=== PATIENT | female | born 1965 | race Caucasian/White ===

== ENCOUNTER → 2016-11-28 | Outpatient (CLI) | payer MEDICARE, OTHER ==
--- NOTE | 2016-11-29 10:30 | Diagnostic Imaging Report ---
Indication: COUGH Technique: XRAY CHEST 2V Comparison:None Findings: The heart is normal in size. There are clips in the left lower chest and upper abdomen from previous surgery. There is slight blunting of the left gastric angle. Lungs are free of acute infiltrates. Impression: Evidence previous surgery Slight blunting left lateral angle. This may be chronic as this is in the area of surgery. A small pleural effusion cannot be excluded however.
== END | disposition home or self-care (01) ==
LOC: RAD 17:03
DX: R05 Cough (principal); J90 Pleural effusion, not elsewhere classified
CPT/HCPCS: 71020

== ENCOUNTER 2017-07-03 15:13 | Outpatient (CLI) | payer MEDICARE ==
--- NOTE | 2017-07-03 16:52 | Diagnostic Imaging Report ---
Indication: PAIN Technique: 3 views of the right wrist Comparison: None Findings: No acute fractures. No dislocations. Joint spaces are preserved. Impression: Negative
== END 2017-07-03 17:13 | disposition home or self-care (01) ==
LOC: RAD 15:13
DX: M25.531 Pain in right wrist (principal)